=== PATIENT | female | born 1985 | race Caucasian/White ===

== ENCOUNTER 2019-04-29 16:10 | Emergency (ER) | payer MEDICAID ==
[~2019-04-29] VITALS: Ht 154.9 cm; Wt 74.4 kg
[2019-04-29 16:20] VITALS: BP_SYST 92
--- NOTE | 2019-04-29 16:25 | NUR ---
Saud Finnegan at bedside examining patient
--- NOTE | 2019-04-29 16:25 | NUR ---
Patient to ER bed 07 to gown for evaluation. Side rails up.
--- NOTE | 2019-04-29 16:44 | NUR ---
patient arrived from home with c/o vaginal bleeding/pelvic pain since last week. patient states "I was seen at [facility] yesterday and they told me I was having a miscarriage." patient stated "I've had 3 pads of bleeding and i changed my pad an hour before coming." patient has a scant amount of blood in victor hugo pad. patient states "This is my first miscarriage." pain has pain with palpation of abd. patient denies any foul odor or discharge outside of blood and clots. patient does not have clotts in victor hugo pad at this time. no other complaint or injury at this time.
--- NOTE | 2019-04-29 17:15 | NUR ---
patient returned from ultrasound in stable condition. patient denies blood dripping/denies passing blood clotts. patient states she is not wearing a pad at this time. patient states she does not need a pad at this time.
--- NOTE | 2019-04-29 17:50 | NUR ---
Pelvic exam performed by Saud Finnegan with myself at bedside for entire examination. Patient tolerated procedure . Patient assisted to position of comfort after examination.
[2019-04-29 18:01] LABS: BASOPHILS # (AUTO) 0.1 K/uL (0.0-0.2); BASOPHILS % (AUTO) 0.6 % (0.0-2.0); EOSINOPHILS # (AUTO) 0.1 K/uL (0.0-0.4); EOSINOPHILS % (AUTO) 1.2 % (0.0-4.0); HEMATOCRIT 33.3 % (36-48); HEMOGLOBIN 11.5 g/dL (12.0-16.0); LYMPHOCYTES # (AUTO) 2.3 K/uL (1.0-5.5); LYMPHOCYTES % (AUTO) 23.9 % (20.5-51.5); MEAN CORPUSCULAR HEMOGLOBIN 31 pg (27-31); MEAN CORPUSCULAR HGB CONC 34 % (32-36); MEAN CORPUSCULAR VOLUME 91 fL (79.0-98.0); MONOCYTES # (AUTO) 0.5 K/uL (0.0-1.0); MONOCYTES % (AUTO) 5.2 % (1.7-9.3); NEUTROPHILS # (AUTO) 6.6 K/uL (1.8-7.7); NEUTROPHILS % (AUTO) 69.1 % (40.0-70.0); PLATELET COUNT (AUTO) 293 K/uL (130-430); RED BLOOD CELL COUNT(AUTO) 3.67 MIL/uL (4.2-6.2); RED CELL DISTRIBUTION WIDTH 12.5 % (9.0-15.0); WHITE BLOOD COUNT (AUTO) 9.5 K/uL (4.8-10.8)
[2019-04-29 18:03] LABS: CALCIUM 8.9 mg/dL (8.4-11.0); CREATININE 0.64 mg/dL (0.55-1.30); POTASSIUM 4.3 mmol/L (3.5-5.1)
[2019-04-29 18:16] VITALS: BP_SYST 115
--- NOTE | 2019-04-29 18:16 | NUR ---
Patient given written and verbal discharge instructions and verbalizes understanding. ER MD discussed with patient the results and treatment provided. Patient in stable condition. ID arm band removed. Rx of zero given. Patient educated on pain management and to follow up with PMD. Pain Scale 0/10. Opportunity for questions provided and answered. Medication side effect fact sheet provided.
[2019-04-29] MEDS ORDERED: IBUPROFEN 800 MG TABLET PO ONE (18:30)
[2019-04-29 18:31] LABS: ALBUMIN 3.4 g/dL (3.4-4.8); TOTAL BILIRUBIN 0.3 mg/dL (0.0-1.0)
== END 2019-04-29 18:16 | disposition home or self-care (01) ==
LOC: SED 16:10
DX: O03.9 Complete or unspecified spontaneous abortion without complication (principal)
CPT/HCPCS: 36415; 76830-TC; 76857; 80053; 81002; 81025; 84702-TC; 85025; 86900; 86901; 99284

== ENCOUNTER 2023-01-06 20:20 | Emergency (ER) | payer MEDICAID ==
[~2023-01-06] VITALS: Ht 154.9 cm; Wt 74.8 kg
[2023-01-06 20:23] VITALS: BP_SYST 121
--- NOTE | 2023-01-06 21:15 | NUR ---
Patient to ER CHAIR 2 for evaluation.
--- NOTE | 2023-01-06 21:28 | NUR ---
Patient to ER bed CH1 to gown for evaluation. Side rails up. Report given to BA COHEN.
[2023-01-06] MEDS ORDERED: NAPR-690 PO (21:33)
--- NOTE | 2023-01-06 21:35 | NUR ---
ER at bedside examining patient.
[2023-01-06 21:52] VITALS: BP_SYST 121
--- NOTE | 2023-01-06 21:55 | NUR ---
Patient given written and verbal discharge instructions CRUTCH USE, ICE/HOT PACK USE AND ELEVATION OF AFFECTED ANKLE and verbalizes understanding. ER MD discussed with patient the results and treatment provided. Patient in stable condition. ID arm band removed. Rx of NAPROXEN. Opportunity for questions provided and answered. Medication side effect fact sheet provided.
== END 2023-01-06 21:52 | disposition home or self-care (01) ==
LOC: SED 20:20
DX: S93.402A Sprain of unspecified ligament of left ankle, initial encounter (principal); S93.602A Unspecified sprain of left foot, initial encounter; Z79.899 Other long term (current) drug therapy; W19.XXXA Unspecified fall, initial encounter; Y93.89 Activity, other specified; Y92.89 Other specified places as the place of occurrence of the external cause; Y99.8 Other external cause status
CPT/HCPCS: 99284

== ENCOUNTER 2024-04-14 16:24 | Emergency (ER) | payer MEDICAID, OTHER ==
[~2024-04-14] VITALS: Ht 154.9 cm; Wt 79.8 kg
[~2024-04-14 16:24] MED LIST: NAPR-690 PO
[2024-04-14 16:39] VITALS: BP_SYST 114; PULSE 92; RESP 18; TEMP 98; O2SAT 98
[2024-04-14 19:16] VITALS: TEMP 98.1
[2024-04-14 19:25] LABS: BILIRUBIN,URINE NEGATIVE (NEGATIVE); BLOOD, URINE NEGATIVE (NEGATIVE); CLARITY/URINE CLEAR (CLEAR); COLOR,URINE YELLOW (YELLOW); GLUCOSE,URINE NEGATIVE (NEGATIVE); KETONES,URINE NEGATIVE (NEGATIVE); LEUKOCYTE ESTERASE ,URINE NEGATIVE (NEGATIVE); NITRITE, URINE NEGATIVE (NEGATIVE); PH,URINE 7.5 (5.0-8.0); PROTEIN URINE NEGATIVE (NEGATIVE); UROBILINOGEN,URINE 0.2 (0.2-1.0)
[2024-04-14 19:41] VITALS: BP_SYST 109; PULSE 74; RESP 18; O2SAT 96
== END 2024-04-14 19:39 | disposition left against medical advice (07) ==
LOC: SED 16:24
DX: O26.892 Other specified pregnancy related conditions, second trimester (principal); R10.30 Lower abdominal pain, unspecified; Z3A.21 21 weeks gestation of pregnancy; Z79.899 Other long term (current) drug therapy
CPT/HCPCS: 76815; 81001; 81003; 81025; 99284